=== PATIENT | female | born 1985 | race Caucasian/White ===

== ENCOUNTER 2024-09-01 12:22 | Emergency (ER) | payer OTHER, SELFPAY ==
[2024-09-01] VITALS (20 sets, daily range): BP systolic 131–167; BP diastolic 89–98; PULSE 66–84; RESP 12–29; O2SAT 96–100
--- NOTE | 2024-09-01 12:15 | RT.EKG_ITS ---
APPROVED REPORT Exam: Resting ECG Reason for Exam: Dizzy, Lightheadedness Patient Location: E HR:71 bpm ECG Measurements Heart Rate 71 AXIS SC 146 P 33 QRSd 87 QRS 45 QT 409 T 44 QTc 445 Conclusion Sinus rhythm...normal P axis, V-rate 60- 99
--- NOTE | 2024-09-01 12:38 | ED.GENADUL_ITS ---
Discharge Plan Disposition Patient Disposition: Home Condition: Stable Discharge Details Clinical Impression: Numbness, Chest pain Primary Care Provider: Rogers Choudhury ED Provider: Baudilio Lawson Home Meds and New Rx's Prescriptions: Continued aspirin 81 mg capsule 81 mg PO DAILY valsartan 40 mg tablet 40 mg PO DAILY nortriptyline 50 mg capsule 50 mg PO DAILY rosuvastatin [Crestor] 10 mg tablet 10 mg PO DAILY Discharge Instructions Additional Instructions: Your blood work did not show any concerning findings at this time. Your MRI showed findings that our radiologist feels is consistent with multiple sclerosis. I had our MRI techs push the images to the [facility] so your neurologist should have access to them. I would recommend calling their office to arrange for a follow-up appointment. If you feel significantly more ill or have severe worsening chest pain or difficulty breathing return to emergency department for reevaluation HPI General Mode of arrival: EMS . Date/Time Provider Initiated Documentation: 09/01/24 12:30 . Limitations to Documentation: no limitations . Information obtained by: patient . History of Present Illness 38 year old F presents to the emergency department with the chief complaint of whole body numb, described as moderate, Patient started experiencing this hour(s) (1) and it has been now resolved. No relieving factors improve symptom(s), No exacerbating factors reported . Patient notes chest pain and shortness of breath; denies nausea/vomiting. Patient did receive the following treatments prior to arrival, none Related Data Home Medications ?Medication ?Instructions ?Recorded ?Confirmed aspirin 81 mg capsule 81 mg PO DAILY 09/01/2408/16 nortriptyline 50 mg capsule 50 mg PO DAILY 09/01/24 rosuvastatin 10 mg tablet (Crestor) 10 mg PO DAILY 09/01/24 valsartan 40 mg tablet 40 mg PO DAILY 09/01/2408/16 Allergies Allergy/AdvReac Type Severity Reaction Status Date / Time sulfamethoxazole (From AdvReac Intermediate Hives Verified 09/01/24 12:29 Bactrim) trimethoprim (From Bactrim) AdvReac Intermediate Hives Verified 09/01/24 12:29 General Stated Complaint: Dizzy/Sync PORTILLO: 3 Review of Systems All systems reviewed & are unremarkable except as noted in HPI and below Constitutional Constitutional: Denies chills, Denies fever(s) and Denies weakness Eyes Eyes: Denies loss of vision Cardiovascular Cardiovascular: Reports chest pain and Reports dyspnea Respiratory Respiratory: Denies cough and Reports dyspnea Gastrointestinal Gastrointestinal: Denies abdominal pain, Denies nausea and Denies vomiting Musculoskeletal Musculoskeletal: Reports numbness Neurologic Neurologic: Denies loss of vision, Reports numbness and Denies weakness Exam Const General: no acute distress Orientation: alert [facility] Head: normal to inspection Ears: external ears normal General nose exam: external nose normal Mouth: moist mucous membranes Eyes General: appearance normal, both eyes and all related structures Neck Neck: normal visual inspection Resp Effort & Inspection: normal respiratory effort and able to speak in complete sentences Cardio Rate: regular rate Skin General skin exam: no rashes or lesions noted Neuro General: patient alert and patient oriented x3 Cranial Nerves: CN's II-XI intact bilaterally and PERRL Cognition: normal cognition Speech: speech normal Motor: muscle tone normal throughout Sensory Exam: no sensory deficits noted Extrem General: normal to inspection Psych Mental Status: mental status grossly normal Course Vital Signs Vital signs: Vital Signs Pulse 75 09/01/24 12:22 Respiratory Rate 22 09/01/24 12:22 Blood Pressure 167/98 H 09/01/24 12:22 Pulse Oximetry 100 09/01/24 12:22 Pulse 75 09/01/24 12:22 Respiratory Rate 22 09/01/24 12:22 Blood Pressure 167/98 H 09/01/24 12:22 Pulse Oximetry 100 09/01/24 12:22 Medical Decision Making 38-year-old female who states she has had episodes where her home body goes numb and has been seen at [facility] for this without a clear cause. She says she has had imaging which is unclear. Signs of MS. She states that they said that they potentially could be a migraine variant. She says she was feeling well, went paddle boarding this morning about coffee. When she got home she started to feel flushed, had chest pain and shortness of breath and felt her whole body going numb. She says her symptoms have now resolved. She is well-appearing speaking full sentences. She has no drift in any extremity, normal sensation and pulses in her extremities. Cranial nerves II through XII are intact. NIH of 0. Her description of her symptoms do not seem consistent with CVA TIA, given her chest pain shortness of breath will check CBC and CMP and troponins. No tearing back pain to suggest dissection. She is not hypoxic or tachycardic and has no signs of DVT on exam so I doubt PE. we will see if there is a chance to get an MRI to evaluate for possible lesions related to MS. Labs unremarkable, MRI per radiology appears to be consistent with MS. Patient stable and feeling better requesting discharge. I did offer to have a teleneurology consult but she says she would prefer to call her neurologist that she sees in [facility] on her own. Return precautions given Differential Diagnosis Differential Diagnosis: MS, migraine, Lab Data Lab results reviewed: Yes I reviewed the patient's lab results. ECG Data Attestation: I personally reviewed and interpreted this ECG (s) as follows: Prior ECG tracings: not available for review Interpretation: Sinus rhythm, rate of 71, VA 146, no STEMI PFSH All Active Problems (Updated 09/01/24 @ 14:57 by Baudilio Lawson MD) Chest pain (Acute) Numbness (Acute) Social History Smoking risk assessment performed?: No
[2024-09-01 12:52] LABS: Abs Immature Grans 0.01 10^3/uL (0.0-0.06); HCT 40.8 % (36.0-46.0); HGB 14.2 g/dL (11.2-15.7); Immature Grans % 0.2 %; MCH 31.4 pg (27.0-33.0); MCHC 34.8 % (32.0-36.0); MCV 90 fL (80-95); MPV 9.4 fL (8.0-11.0); Platelet Count 231 10^3/uL (130-400); RBC 4.52 10^6/uL (3.93-5.22); RDW 12.6 % (11.7-14.6); RDW-SD 41.6 fL; WBC 5.04 10^3/uL (4.4-10.8)
[2024-09-01 13:10] LABS: Troponin I 4 ng/L (<or=51)
[2024-09-01 13:17] LABS: ALT 41 U/L (14-59); AST 26 U/L (15-37); Albumin 4.2 g/dL (3.4-5.0); Alkaline Phosphatase 59 U/L (46-116); Anion Gap 13.5 mmol/L (3-11); BUN 16 mg/dL (7-18); Bilirubin, Total 0.7 mg/dL (0.2-1.0); CO2 24.5 mmol/L (21.0-32.0); Calcium 9.3 mg/dL (8.5-10.1); Chloride 104 mmol/L (98-107); Estimated GFR 96.06 (mL/min/1.73m2); Glucose 106 mg/dL (74-106); Magnesium 2.0 mg/dL (1.8-2.4); Potassium 3.6 mmol/L (3.5-5.1); Sodium 142 mmol/L (136-145); TSH (W/Ref FT4) 1.42 uIU/mL (0.36-3.74); Total Protein 7.6 g/dL (6.4-8.2)
[2024-09-01 13:24] LABS: HCG Qual (Serum) Negative
--- NOTE | 2024-09-01 14:30 | DI.MRI_ITS ---
Exam(s) MR BRAIN WO EXAM: MR BRAIN WO CLINICAL HISTORY: arm and leg numbness, ?ms TECHNIQUE: Multiplanar multisequence MRI of the brain was performed. COMPARISON: No exams were available for comparison FINDINGS: CEREBRAL PARENCHYMA: There is no evidence of intracranial hemorrhage, mass effect, or shift of midline structures. There are no extra-axial fluid collections. Ventricles are not enlarged or shifted. There is no evidence of cerebellar tonsillar ectopia. There is no significant focal signal abnormality in the cerebellar hemispheres nor within the joann, midbrain, and thalami. However, there is abundant bilateral periventricular signal abnormality as well as supra ventricular signal abnormality, most probably consistent with demyelinating disease. There is no significant focal signal abnormality evident on diffusion imaging to suggest acute ischemic event. PITUITARY GLAND: No mass nor parasellar abnormality. No obvious abnormality in the cavernous sinuses. FLOW VOIDS: The expected flow void are noted. No evidence of obvious aneurysm nor obvious vascular malformation. PARANASAL SINUSES: The visualized paranasal sinuses appear unremarkable. No obvious finding ORBITS: No obvious findings. IMPRESSION: There is abundant bilateral guido and supra ventricular white matter focal and confluent signal abnormality, consistent with probable demyelinating disease such as multiple sclerosis. No evidence of significant restricted diffusion to suggest acute ischemic event No evidence of intracranial hemorrhage. Report called by myself to ER physician 09/01/2024 at 2:48 p.m. DATA REPOSITORY:
[2024-09-01 15:06] LABS: Troponin I 4 ng/L (<or=51)
== END 2024-09-01 15:41 | disposition home or self-care (01) ==
PROVIDERS: Emergency Provider Emergency Medicine; PCP Family Medicine
DX: R07.9 Chest pain, unspecified (principal); R20.0 Anesthesia of skin
CPT/HCPCS: 99284 ×2; 36415; 36416; 82962; 80053; 93005; 70551; 83735; 84443; 84484; 84703; 85025; 93010